=== PATIENT | female | born 1965 | race Caucasian/White ===

== ENCOUNTER → 2018-08-28 | Outpatient (CLI) | payer BC ==
[~2018-08-28] MED LIST: IBUP800; MONT10T; PARO20; Ventolin/Prove6.7 GM
== END ==
LOC: LAB SHORT 08:03 → PLD 08:03
DX: D48.5 Neoplasm of uncertain behavior of skin (principal)
CPT/HCPCS: 88304

== ENCOUNTER 2018-09-22 07:46 | Day surgery (SDC) | payer BC | END 2018-09-22 23:21 | disposition home or self-care (01) | LOC: MOI MAM 07:46 | PROC: 0HBT3ZX Excision of Right Breast, Percutaneous Approach, Diagnostic (ICD-10-PCS; principal; 2018-09-22) | DX: C82.89 Other types of follicular lymphoma, extranodal and solid organ sites (principal) | CPT/HCPCS: 19083; 77065; 88305; 88341; 88342; A4648; G0279 ==

== ENCOUNTER 2019-10-29 14:09 | Emergency (ER) | payer BC ==
[~2019-10-29] VITALS: Ht 157.5 cm; Wt 64.9 kg
[2019-10-29 15:07] LABS: BASOPHILS ABSOLUTE AUTO 0.07 K/mm3 (0.00-0.23); BASOPHILS PERCENT AUTO 1 % (0-2); EOSINOPHILS ABSOLUTE AUTO 0.19 K/mm3 (0.00-0.68); EOSINOPHILS PERCENT AUTO 2 % (0-6); Hematocrit 34.4 % (33.0-51.0); Hemoglobin 10.8 g/dL (11.5-16.0); IMMATURE GRAN ABSOLUTE AUTO 0.03 K/mm3 (0.00-0.10); IMMATURE GRAN PERCENT AUTO 0 % (0-1); LYMPHOCYTES PERCENT AUTO 10 % (21-46); MONOCYTES PERCENT AUTO 7 % (4-13); Mean Corpuscular HGB Conc 31.4 g/dL (31.5-36.5); Mean Corpuscular Volume 80 fL (80-100); Mean Platelet Volume 8.8 fL (9.1-12.4); NEUTROPHILS ABSOLUTE AUTO 9.26 K/mm3 (1.96-9.15); NEUTROPHILS PERCENT AUTO 80 % (41-73); Platelet Count 255 K/mm3 (150-400); RDW Coefficient Variation 17.6 % (11.7-14.2); RDW Standard Deviation 47.8 fL (35.1-46.3); Red Blood Cell Count 4.32 M/mm3 (3.80-5.20); White Blood Cell Count 11.55 K/mm3 (4.00-11.30)
[2019-10-29 15:46] LABS: Alanine Aminotransfer (ALT/SGP 27 U/L (12-78); Albumin, Blood 3.9 g/dL (3.4-5.0); Alk Phos 99 U/L (50-136); Anion Gap 7 mmol/L (6-16); Aspartate Aminotrans (AST/SGOT 20 U/L (12-37); Bilirubin, Total 0.5 mg/dL (0.1-1.0); Blood Urea Nitrogen 16 mg/dL (8-24); Bun/Creatinine Ratio 20.1 (12.0-20.0); CO2, Blood 24 mmol/L (21-32); Calcium, Blood 9.2 mg/dL (8.5-10.1); Chloride, Blood 106 mmol/L (98-108); Globulin, Blood 3.8 g/dL (2.2-4.0); Glomerular Filtration Rate >60 (60-); Glucose, Blood 100 mg/dL (70-99); Potassium, Blood 3.9 mmol/L (3.5-5.5); Sodium, Blood 137 mmol/L (136-145); Total Protein, Blood 7.7 g/dL (6.4-8.2)
[2019-10-29 18:31] LABS: Source, Urine Voided
[2019-10-29 18:36] LABS: Appearance, Urine Clear (Clear); Bilirubin, Urine Neg (Neg); Blood, Urine 1+ (Neg); Color, Urine Yellow (P-Yellow); Glucose Qualitative, Urine Neg (Neg); Ketones, Urine Neg (Neg); Leukocyte Esterase, Urine Neg (Neg); Nitrite, Urine Neg (Neg); Protein, Urine Neg (Neg); Urobilinogen, Urine NORM (Normal)
[2019-10-29 18:44] LABS: Bacteria Few /hpf; Red Blood Cells, Urine Rare /hpf (0-2); Squamous Epithelial Cells Rare /hpf (Few); White Blood Cells, Urine Not Seen /hpf (0-5)
[2019-10-29] MEDS ORDERED: CIPR500 PO (19:10)
[2019-10-29] MEDS ORDERED: ONDA4 PO (19:11)
[2019-10-29] MEDS ORDERED: Flagyl500 MG PO (19:11)
[2019-10-29] MEDS ORDERED: TRAM50 PO (19:11)
== END 2019-10-29 19:22 | disposition home or self-care (01) ==
LOC: ER 14:09
PROVIDERS: Emergency Medicine
DX: K52.9 Noninfective gastroenteritis and colitis, unspecified (principal); I11.0 Hypertensive heart disease with heart failure; F17.200 Nicotine dependence, unspecified, uncomplicated; Z88.0 Allergy status to penicillin; Z88.2 Allergy status to sulfonamides; Z88.6 Allergy status to analgesic agent; Z88.5 Allergy status to narcotic agent; Z88.8 Allergy status to other drugs, medicaments and biological substances; Z91.09 Other allergy status, other than to drugs and biological substances; Z86.73 Personal history of transient ischemic attack (TIA), and cerebral infarction without residual deficits; Z79.899 Other long term (current) drug therapy
CPT/HCPCS: 36415; 74176; 80053; 81001; 85025; 93005; 93010; 96365; 96368; 96375; 96376; 99284-25; J0744; J2270

== ENCOUNTER 2019-10-31 11:15 | Inpatient (IN) | payer BC ==
[~2019-10-31] VITALS: Ht 157.5 cm; Wt 63.5 kg
[~2019-10-31 11:15] MED LIST changes: +CIPR500 PO; +Flagyl500 MG PO; +ONDA4 PO; +TRAM50 PO
[2019-10-31 13:39] LABS: Source, Urine Clean Catch
[2019-10-31 13:43] LABS: BASOPHILS ABSOLUTE AUTO 0.08 K/mm3 (0.00-0.23); BASOPHILS PERCENT AUTO 1 % (0-2); EOSINOPHILS PERCENT AUTO 3 % (0-6); Hematocrit 32.6 % (33.0-51.0); Hemoglobin 10.3 g/dL (11.5-16.0); IMMATURE GRAN ABSOLUTE AUTO 0.03 K/mm3 (0.00-0.10); IMMATURE GRAN PERCENT AUTO 0 % (0-1); LYMPHOCYTES ABSOLUTE AUTO 1.38 K/mm3 (0.84-5.20); LYMPHOCYTES PERCENT AUTO 18 % (21-46); MONOCYTES ABSOLUTE AUTO 0.66 K/mm3 (0.16-1.47); MONOCYTES PERCENT AUTO 9 % (4-13); Mean Corpuscular HGB 25.4 pg (26.0-34.0); Mean Corpuscular HGB Conc 31.6 g/dL (31.5-36.5); Mean Corpuscular Volume 81 fL (80-100); Mean Platelet Volume 9.1 fL (9.1-12.4); NEUTROPHILS ABSOLUTE AUTO 5.16 K/mm3 (1.96-9.15); NEUTROPHILS PERCENT AUTO 69 % (41-73); Platelet Count 243 K/mm3 (150-400); RDW Coefficient Variation 18.3 % (11.7-14.2); RDW Standard Deviation 51.6 fL (35.1-46.3); Red Blood Cell Count 4.05 M/mm3 (3.80-5.20); White Blood Cell Count 7.51 K/mm3 (4.00-11.30)
[2019-10-31 13:47] LABS: Appearance, Urine Clear (Clear); Bilirubin, Urine Neg (Neg); Blood, Urine Neg (Neg); Color, Urine Yellow (P-Yellow); Glucose Qualitative, Urine Neg (Neg); Ketones, Urine Neg (Neg); Leukocyte Esterase, Urine Neg (Neg); Nitrite, Urine Neg (Neg); Protein, Urine Neg (Neg); Urobilinogen, Urine NORM (Normal)
[2019-10-31 14:00] LABS: Albumin, Blood 3.4 g/dL (3.4-5.0); Albumin/Globulin Ratio 0.9 (0.8-1.8); Bilirubin, Total 0.4 mg/dL (0.1-1.0); Bun/Creatinine Ratio 11.1 (12.0-20.0); Calcium, Blood 8.9 mg/dL (8.5-10.1); Creatinine, Blood 1.26 mg/dL (0.40-1.00); Globulin, Blood 3.8 g/dL (2.2-4.0); Total Protein, Blood 7.2 g/dL (6.4-8.2)
[2019-10-31] MEDS ORDERED: MONT10T PO (15:26)
[2019-10-31] MEDS ORDERED: FERSU300 PO (15:26)
[2019-10-31] MEDS ORDERED: Bentyl10 MG PO (15:27)
[2019-10-31] MEDS ORDERED: HYDCHL12.5 PO (15:28)
[2019-10-31] MEDS ORDERED: LANSOPRAZOLE30 MG PO (15:30)
[2019-10-31] MEDS ORDERED: LOSARTAN POTAS100 M1 PO (15:30)
[2019-10-31] MEDS ORDERED: NEURONTIN300 MG PO (15:31)
[2019-10-31] MEDS ORDERED: LIPITOR80 MG PO (15:31)
[2019-10-31] MEDS ORDERED: Naproxen375 MG PO (15:32)
[2019-10-31] MEDS ORDERED: FLUTICASONE PRO16 GM (15:32)
[2019-10-31] MEDS ORDERED: METO50ER PO (15:33)
[2019-10-31] MEDS ORDERED: DULOXETINE HCL60 M1 PO (15:33)
[2019-10-31] MEDS ORDERED: OMEP20ER PO (15:33)
[2019-10-31] MEDS ORDERED: XARELTO20 M1 PO (15:33)
[2019-10-31] MEDS ORDERED: ONDA4 PO (17:52)
[2019-10-31] MEDS ORDERED: CIPR500 PO (17:53)
[2019-10-31] MEDS ORDERED: OXYC5 PO (18:00)
[2019-10-31] MEDS ORDERED: TIZA4 PO (18:01)
[2019-10-31] MEDS ORDERED: METR500 PO (18:01)
[2019-10-31] MEDS ORDERED: SUMA25 PO (18:02)
--- NOTE | 2019-10-31 18:21 | NUR ---
ER ADMIT: PATIENT CAME IN ALERT AND ORIENTED X4. VITALS WERE NORMAL. SHE HAS BEEN ABLE TO VOID ONCE SHE ANSWERED THE ADMIT QUESTIONS. SHE IS ON ROOM AIR. PATIENT HAS SIGNIFICANT OTHER (VO) AT BEDSIDE WHO IS HARD OF HEARING. HER STOMACH IS TENDER AND IS REPORTING SHE WANTS TO EAT "BLAND BECAUSE OF THE DIARRHEA". SHE REPORTED PAIN AND WAS MEDICATED PER EMAR ORDER. SHE IS CURRENTLY ON ANTIBIOTICS AND NS FLUIDS. CALL LIGHT IS WITHIN REACH. PATIENT HAS NON-SKID SOCKS ON. WILL CONTINUE TO MONITOR PATIENT.
--- NOTE | 2019-11-01 04:20 | NUR ---
SHIFT SUMMARY PT RESTED INTERMITTENTLY T/O NIGHT. AAOX4. INDEPENDENT IN ROOM. GOOD PO INTAKE + OUTPUT. MULTIPLE LOOSE STOOLS THIS SHIFT. ABD DISCOMFORT CONTROLLED WITH 1 ROXICODONE Q4H. MILD NAUSEA YESTARDAY EVENING POST EATING, CONTROLLED WITH ZOFRAN. NO EMESIS. IVF + ABX PER ORDERS. PT RESTING THIS AM WITH DECREASED STIMULI + FAN AT BEDSIDE. WILL HOLD OFF ON LABS UNTIL PT AWAKENS. PT CURRENTLY RESTING WITH CALL LIGHT IN REACH.
[2019-11-01 06:13] LABS: Hematocrit 30.8 % (33.0-51.0); Hemoglobin 9.5 g/dL (11.5-16.0); Mean Corpuscular HGB 25.3 pg (26.0-34.0); Mean Corpuscular HGB Conc 30.8 g/dL (31.5-36.5); Mean Corpuscular Volume 82 fL (80-100); Platelet Count 214 K/mm3 (150-400); RDW Coefficient Variation 18.7 % (11.7-14.2); RDW Standard Deviation 53.1 fL (35.1-46.3); Red Blood Cell Count 3.75 M/mm3 (3.80-5.20); White Blood Cell Count 5.96 K/mm3 (4.00-11.30)
[2019-11-01 06:25] LABS: Bun/Creatinine Ratio 8.1 (12.0-20.0); Calcium, Blood 8.8 mg/dL (8.5-10.1); Creatinine, Blood 1.23 mg/dL (0.40-1.00)
--- NOTE | 2019-11-01 15:36 | NUR ---
SHIFT SUMMARY: PATIENT HAS BEEN ALERT AND ORIENTED X4 THROUGHOUT SHIFT. SHE HAS BEEN INDEPENDENT IN THE ROOM. SHE HAS BEEN ABLE TO VOID. PT REPORTED SHE HAD DIARRHEA YESTERDAY, BUT HAS SINCE BEEN MEDICATED AND HASN'T HAD IT SINCE. SHE STILL HAS ABD DISCOMFORT BUT HAS BEEN CONTROLLED WITH 1 ROXICODONE EVERY 4HRS. MILD NAUSEA EARLIER THIS MORNING, BUT WAS CONTROLLED WITH ZOFRAN. FLUIDS AND ANTIBIOTICS HAVE BEEN GIVEN PER ORDERS. PT REPORTS SHES BEEN ABLE TO EAT MORE THAN BEFORE, BUT IS WANTING TO TAKE IT SLOW. PT IS CURRENTLY WITH HER IN THE ROOM. CALL LIGHT IS WITHIN REACH. WILL CONTINUE TO MONITOR UNTIL NIGHTSHIFT NURSE COMES FOR REPORT.
[2019-11-02 05:00] LABS: Hematocrit 35.7 % (33.0-51.0); Hemoglobin 10.9 g/dL (11.5-16.0); Mean Corpuscular HGB 25.3 pg (26.0-34.0); Mean Corpuscular HGB Conc 30.5 g/dL (31.5-36.5); Mean Corpuscular Volume 83 fL (80-100); Mean Platelet Volume 9.1 fL (9.1-12.4); Platelet Count 242 K/mm3 (150-400); RDW Coefficient Variation 19.4 % (11.7-14.2); RDW Standard Deviation 55.8 fL (35.1-46.3); Red Blood Cell Count 4.31 M/mm3 (3.80-5.20); White Blood Cell Count 6.46 K/mm3 (4.00-11.30)
--- NOTE | 2019-11-02 05:11 | NUR ---
SHIFT SUMMARY PT RESTED WELL T/O NIGHT. AAOX4. GOOD PO INTAKE + OUTPUT. IVF SALINE LOCKED + IV ABX PER ORDERS. INDEPENDENT IN ROOM. PT REPORTING MULTIPLE LOOSE STOOLS YESTARDAY EVENING + FLATUS, NO BLOOD. BT X4, ABD SOFT BUT TENDER WITH PALPATION. NO ACUTE CHANGES OVER NIGHT. AWAITING LAB RESULTS THIS AM. PT CURRENTLY SITTING UP IN BED WATCHING TV WITH CALL LIGHT IN REACH.
[2019-11-02 05:16] LABS: Bun/Creatinine Ratio 12.4 (12.0-20.0); Calcium, Blood 9.3 mg/dL (8.5-10.1); Creatinine, Blood 1.21 mg/dL (0.40-1.00)
--- NOTE | 2019-11-02 09:19 | NUR ---
[address] TORRES HERE TO SEE PATIENT. DISCUSSED WITH DR TORRES MEDS HELD THIS AM DUE TO BP AND THAT PATIENT DOES NOT WISH TO TAKE ASPIRIN. DR TORRES DISCUSSED WITH PATIENT WHY ASPIRIN WAS ORDERED UPON ADMISSION- PT AGAIN DECLINES ASPIRIN DOSE
--- NOTE | 2019-11-02 18:04 | NUR ---
SUMMARY PT REPORTS INCREASED ABD PAIN AND CRAMPING AFTER PO FOOD, PT NITZA FLUIDS WITHOUT NAUSEA. PT REPORTS SOME BLOOD ON TOILET PAPER WHEN WIPES SELF AFTER BM. BM IS BROWN IN APPEARANCE
[2019-11-03 04:39] LABS: Hematocrit 30.8 % (33.0-51.0); Hemoglobin 9.8 g/dL (11.5-16.0); Mean Corpuscular HGB 25.7 pg (26.0-34.0); Mean Corpuscular HGB Conc 31.8 g/dL (31.5-36.5); Mean Corpuscular Volume 81 fL (80-100); Mean Platelet Volume 9.1 fL (9.1-12.4); Platelet Count 193 K/mm3 (150-400); RDW Coefficient Variation 19.8 % (11.7-14.2); RDW Standard Deviation 56.8 fL (35.1-46.3); Red Blood Cell Count 3.82 M/mm3 (3.80-5.20); White Blood Cell Count 5.97 K/mm3 (4.00-11.30)
[2019-11-03 04:57] LABS: Bun/Creatinine Ratio 9.2 (12.0-20.0); Calcium, Blood 8.8 mg/dL (8.5-10.1); Creatinine, Blood 1.09 mg/dL (0.40-1.00); Potassium, Blood 3.8 mmol/L (3.5-5.5)
--- NOTE | 2019-11-03 05:34 | NUR ---
SHIFT SUMMARY COLITIS, A/O, VSS, VOIDING, PASSING FLATUS, MULTIPLE BM DURING SHIFT, TOLERATING PO, AMBULATING INDEPENDENTLY IN ROOM, PAIN WELL CONTROLLED PER EMAR, ABX INFUSING PER EMAR. PT STATED "MY CANCER DOCTOR TOLD ME NOT TO TAKE ASPIRIN OR MY REGULAR BLOOD THINNER FOR 10 DAYS", ASPIRIN HELD AND WILL ADVISE DAY RN TO DISCUSS DC W/ DR TORRES PER PT REQUEST. WILL CONTINUE TO MONITOR AND REPORT TO ONCOMING DAY RN.
--- NOTE | 2019-11-03 10:04 | NUR ---
DC PLAN PT AND ON BEDSIDE PLAN/AGREED TO BE DC'D TODAY AFTER BOOKBINDER APPRENTICE, ANTIBIOTICS. DR TORRES DISCUSSED AND EDUC PT INCREASE FLUIDS FOR HYDRATION AND PAIN MNGMENT AT HOME. CC
[2019-11-03] MEDS ORDERED: LACTOBACILLUS1 EAC4 PO (13:29)
[2019-11-03] MEDS ORDERED: OXAYDO5 MG PO (13:29)
--- NOTE | 2019-11-03 14:29 | NUR ---
DISCHARGE PT PROVIDED WITH WRITTEN AND VERBAL DISCHARGE INSTRUCTIONS; SHE REPORTED UNDERSTANDING. PRESCRIPTION PROVIDED FOR PAIN MEDICATION AND PROBIOTIC CALLED TO PT'S PHARMACY. PT ESCORTED OUT IN W/C BY NATHEN KERNS.
== END 2019-11-03 13:50 | disposition home or self-care (01) | DRG 392 ==
LOC: ER 11:15 → SURS 15:15
PROVIDERS: Physician Assistant; ADMIT Internal Medicine
DX: K52.9 Noninfective gastroenteritis and colitis, unspecified (principal); C85.90 Non-Hodgkin lymphoma, unspecified, unspecified site; N17.9 Acute kidney failure, unspecified; Z20.828 Contact with and (suspected) exposure to other viral communicable diseases; F17.210 Nicotine dependence, cigarettes, uncomplicated; I77.1 Stricture of artery; I34.0 Nonrheumatic mitral (valve) insufficiency; I35.1 Nonrheumatic aortic (valve) insufficiency; J44.9 Chronic obstructive pulmonary disease, unspecified; I11.0 Hypertensive heart disease with heart failure; I50.9 Heart failure, unspecified; Z86.73 Personal history of transient ischemic attack (TIA), and cerebral infarction without residual deficits
CPT/HCPCS: 36415; 70450; 80048; 80053; 81003; 84484; 85025; 85027; 93005; 93010; 93306; 94760; 97110; 97161; 99285-25; A9270-GY; J0744; J2405; J7030; J7050; J7120

== ENCOUNTER 2020-06-05 09:16 | Inpatient (IN) | payer BC ==
[~2020-06-05] VITALS: Ht 167.6 cm; Wt 78.9 kg
[~2020-06-05 09:16] MED LIST changes: +BUSP5 PO; +Bentyl10 MG PO; +CLARITIN-D 121 EAC1 PO; +CLOP75 PO; +DULO60 PO; +DULOXETINE HCL60 M1 PO; +FERSU300 PO; +FLUTICASONE PRO16 GM; +HYDCHL12.5 PO; +LACTOBACILLUS1 EAC4 PO; +LANSOPRAZOLE30 MG PO; +LIPITOR80 MG PO; +LOSARTAN POTAS100 M1 PO; +METO25ER PO; +METO50ER PO; +METR500 PO; +MONT10T PO; +NEURONTIN300 MG PO; +Naproxen375 MG PO; +OMEP20ER PO; +OXAYDO5 MG PO; +OXYC5 PO; +SUMA25 PO; +TIZA4 PO; +XARELTO20 M1 PO; +XARELTO20 MG PO
[2020-06-05 09:52] LABS: BASOPHILS ABSOLUTE AUTO 0.27 K/mm3 (0.00-0.23); BASOPHILS PERCENT AUTO 1 % (0-2); EOSINOPHILS ABSOLUTE AUTO 1.11 K/mm3 (0.00-0.68); EOSINOPHILS PERCENT AUTO 6 % (0-6); Hematocrit 44.7 % (33.0-51.0); Hemoglobin 14.3 g/dL (11.5-16.0); IMMATURE GRAN ABSOLUTE AUTO 0.27 K/mm3 (0.00-0.10); IMMATURE GRAN PERCENT AUTO 1 % (0-1); LYMPHOCYTES ABSOLUTE AUTO 8.37 K/mm3 (0.84-5.20); LYMPHOCYTES PERCENT AUTO 44 % (21-46); MONOCYTES ABSOLUTE AUTO 1.58 K/mm3 (0.16-1.47); MONOCYTES PERCENT AUTO 8 % (4-13); Mean Corpuscular HGB 31.1 pg (26.0-34.0); Mean Corpuscular Volume 97 fL (80-100); Mean Platelet Volume 8.6 fL (9.1-12.4); NEUTROPHILS ABSOLUTE AUTO 7.46 K/mm3 (1.96-9.15); NEUTROPHILS PERCENT AUTO 39 % (41-73); Platelet Count 310 K/mm3 (150-400); RDW Coefficient Variation 13.2 % (11.7-14.2); RDW Standard Deviation 47.4 fL (35.1-46.3); White Blood Cell Count 19.06 K/mm3 (4.00-11.30)
[2020-06-05 10:05] LABS: Calcium, Ionized (POC) 1.12 mmol/L (1.10-1.46); Chloride (POC) 100 mmol/L (98-108); Creatinine (POC) 1.2 mg/dL (0.6-1.0); Glucose (ISTAT POC) 302 mg/dL (70-99); Hemoglobin (POC) 15.3 g/dL (12.0-16.0); Potassium (POC) 3.3 mmol/L (3.5-5.5); Sodium (POC) 134 mmol/L (135-148); Total CO2 (POC) 18 mmol/L (21-32)
[2020-06-05 10:05] LABS: Alanine Aminotransfer (ALT/SGP 56 U/L (12-78); Albumin, Blood 3.2 g/dL (3.4-5.0); Albumin/Globulin Ratio 0.9 (0.8-1.8); Alk Phos 136 U/L (50-136); Anion Gap 13 mmol/L (6-16); Aspartate Aminotrans (AST/SGOT 55 U/L (12-37); Bilirubin, Total 0.3 mg/dL (0.1-1.0); Blood Urea Nitrogen 10 mg/dL (8-24); Bun/Creatinine Ratio 10.1 (12.0-20.0); CO2, Blood 19 mmol/L (21-32); Calcium, Blood 8.8 mg/dL (8.5-10.1); Chloride, Blood 102 mmol/L (98-108); Globulin, Blood 3.6 g/dL (2.2-4.0); Glomerular Filtration Rate >60 (60-); Glucose, Blood 311 mg/dL (70-99); Potassium, Blood 3.4 mmol/L (3.5-5.5); Sodium, Blood 134 mmol/L (136-145); Total Protein, Blood 6.8 g/dL (6.4-8.2); Troponin I 0.073 ng/mL (0.000-0.040)
[2020-06-05 10:05] LABS: Source, Urine Catheter
[2020-06-05 10:08] LABS: Bilirubin, Urine Neg (Neg); Blood, Urine 4+ (Neg); Glucose Qualitative, Urine 3+ (Neg); Ketones, Urine 1+ (Neg); Leukocyte Esterase, Urine 1+ (Neg); Nitrite, Urine Neg (Neg); Protein, Urine 4+ (Neg); Specific Gravity, Urine 1.025 (1.003-1.022); Urobilinogen, Urine NORM (Normal)
[2020-06-05 10:13] LABS: PCO2 Arterial 53.9 mmHg (35-45); PO2 Arterial 375 mmHg (80-100)
[2020-06-05 10:17] LABS: Appearance, Urine Hazy (Clear); Color, Urine Yellow (P-Yellow)
[2020-06-05 10:18] LABS: Amorphous Light (0-Heavy); Bacteria Few /hpf; Mucus Light (0-Heavy); Squamous Epithelial Cells Rare /hpf (Few); White Blood Cells, Urine 0-2 /hpf (0-5)
[2020-06-05 10:26] LABS: U Amphetamine Screen Not Detected; U Barbituate Screen Not Detected; U Benzodiazapine Screen Not Detected; U Buprenorphine Screen Not Detected; U Cannabinoids Screen Not Detected; U Cocaine Screen Not Detected; U Methadone Screen Not Detected; U Methamphetamine Screen Not Detected; U Opiates Screen Not Detected; U Oxycodone Screen Not Detected; U Phencyclidine Screen Not Detected
[2020-06-05 10:27] LABS: U Propoxyphene Screen Not Detected
[2020-06-05 10:43] LABS: Influenza A, PCR NEGATIVE (NEGATIVE); Influenza B, PCR NEGATIVE (NEGATIVE); Resp Syncytial Virus, PCR NEGATIVE (NEGATIVE); SARS-Cov-2 (COVID-19) PCR, MMC NEGATIVE (NEGATIVE)
[2020-06-05] MEDS ORDERED: PANT20 PO (11:48)
[2020-06-05] MEDS ORDERED: TIZANIDINE HCL2 M5 PO (11:49)
[2020-06-05] MEDS ORDERED: BUSP5 PO (11:49)
[2020-06-05] MEDS ORDERED: METOPROLOL TART25 MG PO (11:50)
[2020-06-05] MEDS ORDERED: CYMBALTA30 M2 PO (11:50)
[2020-06-05] MEDS ORDERED: IMITREX100 MG PO (11:51)
--- NOTE | 2020-06-05 13:58 | NUR ---
ARRIVAL FROM ER PT ADMITTED FOR ACUTE RESP FAILURE. ARRIVES TO ICU AT 1210. PT INTUBATED AND SEDATED. VENT SETTINGS AC 18/400/10/50%. LUNGS COARSE c PROLONGED EXP PHASE AND EXP WHEEZES. OCCASIONAL COUGH. PROPOFOL GTT FOR SEDATION. PT P/W/D. ST ON MONITOR, RATE 100-130'S. BP STABLE, MAP>65. ABD DISTENDED, SOFT, BT X 4. OGT TO LIS, BROWN EMESIS OUT. CISNEROS PATENT, DRAINING CLOUDY YELLOW URINE TO GRAVITY. PIV X 3. IVF INFUSING AND K+, ANTIBIOTICS STARTED. RESTRAINTS TO PROTECT LINES AND TUBES. VO AT BEDSIDE. REPORTS PT c INCREASING SOB, "BRONCHITIS LIKE" SYMPTOMS X 3 WEEKS. STATES SYMPTOMS WORSE THIS AM. PT SE[facility] AT [facility], DOES NOT RECEIVE TX, JUST MONITORING.
[2020-06-05 17:42] LABS: PO2 Arterial 105 mmHg (80-100); pH Blood Arterial 7.31 (7.35-7.45)
--- NOTE | 2020-06-05 17:57 | NUR ---
METOPROLOL 2.5MG IVP ADMINISTERED FOR HR 137 AFIB. HR DECREASED TO 125, BP BECAME HYPTENSIVE. 250ML BOLUS NS ADMINSTERED PER DR. OVALLE, BP IMPROVING.
--- NOTE | 2020-06-05 18:40 | NUR ---
EVENING UPDATE PT APPEARED VERY UNCOMFORTABLE DESPITE INCREASE IN PROPOFOL, EXPIRATION TIMES WERE LONG AND APPEARED TO BE FORCED, ACCESSORY MUSCLES IN USE, VENT ALARMING HIGH PRESSURES. LS TIGHT, DIMINISHED. PROPOFOL INCREASED WITHOUT CHANGE, RT NOTIFIED. RT AT BEDSIDE, NEB ADMINISTERED, FLOW DECREASED. VENT SETTINGS AC 18, Vt 400, FIO2 40%, PEEP 10. PT'S RESPIRATIONS APPEAR UNLABORED AT THIS TIME, ACCESSORY MUSCLE USE DECREASED. LS REMAIN DIMINISHED T/O, AIRATION INCREASED. SOLUMEDROL ADMINISTERED, XARELTO HELD PT'S STATES PT HAD IT AT HOME THIS MORNING. HR 120'S AFTER METOPROLOL, BP 119/72 AFTER 250ML NS BOLUS. NS DC'D, BICARB INFUSING PER ORDERS. PLAN TO DRAW ABG AT [address] OVALLE.
[2020-06-05 21:04] LABS: PCO2 Arterial 37.6 mmHg (35-45); PO2 Arterial 107 mmHg (80-100); pH Blood Arterial 7.32 (7.35-7.45)
[2020-06-06 03:43] LABS: BASOPHILS ABSOLUTE AUTO 0.01 K/mm3 (0.00-0.23); BASOPHILS PERCENT AUTO 0 % (0-2); EOSINOPHILS PERCENT AUTO 0 % (0-6); Hematocrit 33.5 % (33.0-51.0); Hemoglobin 11.5 g/dL (11.5-16.0); IMMATURE GRAN ABSOLUTE AUTO 0.06 K/mm3 (0.00-0.10); IMMATURE GRAN PERCENT AUTO 1 % (0-1); LYMPHOCYTES ABSOLUTE AUTO 0.51 K/mm3 (0.84-5.20); LYMPHOCYTES PERCENT AUTO 5 % (21-46); MONOCYTES ABSOLUTE AUTO 0.37 K/mm3 (0.16-1.47); MONOCYTES PERCENT AUTO 3 % (4-13); Mean Corpuscular HGB Conc 34.3 g/dL (31.5-36.5); Mean Platelet Volume 8.7 fL (9.1-12.4); NEUTROPHILS ABSOLUTE AUTO 10.17 K/mm3 (1.96-9.15); NEUTROPHILS PERCENT AUTO 92 % (41-73); Platelet Count 188 K/mm3 (150-400); RDW Coefficient Variation 13.5 % (11.7-14.2); RDW Standard Deviation 44.5 fL (35.1-46.3); Red Blood Cell Count 3.71 M/mm3 (3.80-5.20); White Blood Cell Count 11.12 K/mm3 (4.00-11.30)
[2020-06-06 03:47] LABS: Mean Corpuscular Volume 90 fL (80-100)
[2020-06-06 04:03] LABS: Alanine Aminotransfer (ALT/SGP 75 U/L (12-78); Albumin, Blood 2.8 g/dL (3.4-5.0); Albumin/Globulin Ratio 0.9 (0.8-1.8); Alk Phos 97 U/L (50-136); Anion Gap 9 mmol/L (6-16); Aspartate Aminotrans (AST/SGOT 54 U/L (12-37); Bilirubin, Total 0.6 mg/dL (0.1-1.0); Blood Urea Nitrogen 11 mg/dL (8-24); Bun/Creatinine Ratio 14.1 (12.0-20.0); CO2, Blood 24 mmol/L (21-32); Calcium, Blood 7.9 mg/dL (8.5-10.1); Chloride, Blood 106 mmol/L (98-108); Creatinine, Blood 0.78 mg/dL (0.40-1.00); Globulin, Blood 3.1 g/dL (2.2-4.0); Glomerular Filtration Rate >60 (60-); Glucose, Blood 231 mg/dL (70-99); Magnesium, Blood 1.8 mg/dL (1.6-2.4); Phosphorus, Blood 1.1 mg/dL (2.5-4.9); Potassium, Blood 3.3 mmol/L (3.5-5.5); Sodium, Blood 139 mmol/L (136-145); Total Protein, Blood 5.9 g/dL (6.4-8.2)
[2020-06-06 04:55] LABS: PCO2 Arterial 35.8 mmHg (35-45); PO2 Arterial 54.3 mmHg (80-100); pH Blood Arterial 7.47 (7.35-7.45)
--- NOTE | 2020-06-06 05:47 | NUR ---
SHIFT SUMMARY PATIENT SLEPT WELL THROUGH NIGHT. THROUGH MOST OF NIGHT HAD DIFFICULTY BALANCING OXYGENATION, BLOOD PRESSURE, SEDATION, VENTILATOR TOLERANCE. FINALLY SETTLED ON PROPOFOL @ 10 MCG/KG/HR WITH INFREQUENT ATIVAN PUSHES OF 2MG. ASSESSMENT IS CHARTED. VSS. WILL CONTINUE TO MONITOR.
--- NOTE | 2020-06-06 07:15 | NUR ---
BEGINNING OF SHIFT Assumed care of pt at 0700. Bedside report received from Galileo KERNS. Pt receiving 10 mcg/kg/min propofol for sedation. At this rate, pt is responsive to verbal stimulus. Follows commands. Easily agitated, however, pt is redirectable. Difficulty increasing propofol due to low BP. Gag and cough are present. Pupils are equal and round. Telescoping noted with assessment with light. Pt on on ventilator with 7.5 cm ETT, 21 cm ATT. Ventilator settings, spontaneous mode with PS 10/10, 35% FiO2. Respirations 16-20. Tidal volumes greater than [address] per monitor with HR in 140s. Diop catheter in place, draining clear, yellow urine. Temp probe in place, low-grade fever. Will continue to closely reassess. OG tube in place, to LIS, with bilious drainage.
--- NOTE | 2020-06-06 08:30 | NUR ---
DR TUBBS AND DR HONG AT BEDSIDE. DISCUSSED PATIENT'S ANTIBIOTICS AND AWARE OF HR/BP.
--- NOTE | 2020-06-06 11:00 | NUR ---
Discussed BP with Dr Blackmon, as it has not improved with reducing sedation. Plan for fluid bolus and if this is not effective, PICC line will be placed for giving vasopressors.
[2020-06-06 12:46] LABS: Hematocrit 31.5 % (33.0-51.0); Hemoglobin 10.7 g/dL (11.5-16.0)
--- NOTE | 2020-06-06 13:04 | NUR ---
Echocardiogram completed.
--- NOTE | 2020-06-06 17:49 | NUR ---
END OF SHIFT SUMMARY: PATIENT IS INTUBATED, FOLLOWS COMMANDS, AND HAS HAD PERIODS OF AGITATION AND RELAXATION THROUGHOUT SHIFT. PT IS IN SOFT WRIST RESTRAINTS THAT SHE IS TOLERATING WELL, BUT MOVES ARMS UP TOWARDS VENT WHEN UNRESTRAINED DURING REPOSITIONING. AT THIS TIME SHE IS CALM AND COOPERATIVE WITH CARE. CURRENTLY SEDATED WITH 0.4 MCG/KG/HR PRECEDEX. GAG AND COUGH REFLEXES PRESENT. SHE OPENS EYES AND TURNS BODY ON COMMAND. VENTILATOR ON SPONTANEOUS MODE WITH PRESSURE SUPPORT 10/10, FiO2 40%, RESPIRATORY RATE IS 15, TIDAL VOLUME 550-650. SHE HAS A PICC LINE IN THE LEFT UPPER ARM, PERIPHERAL IV'S IN THE RIGHT ARM, AND A TEMP CISNEROS DRAINING TO GRAVITY. SBP HAVE BEEN IN THE MID 70S-110S WITH HR 110-140. RECEIVING LEVOPHED 4 MCG/MIN FOR GOAL MAP >65. AMIODARONE 1 MG/MIN FOR HR CONTROL. CURRENTLY SINUS TACH, RATE 131. OG TUBE CLAMPED POST ADMINISTRATION OF XARELTO. SPOUSE VISITED FOR 4 HOURS TODAY, UPDATED ON PLAN OF CARE, VERBALIZED UNDERSTANDING. WILL CONTINUE TO CLOSELY MONITOR UNTIL CARE HANDOFF AND BEDSIDE REPORT WITH ONCOMING RN.
--- NOTE | 2020-06-06 19:00 | NUR ---
ASSUMING PT CARE: PT INTUBATED & SEDATED. VENT: PS 10/10, 40%. GTTs: PRECEDEX 0.4mcg/kg/hr, LEVOPHED 2mcg/min, AMNIO 1mg/min. PT EASILY AWAKES TO VERBAL STIMULI, BECOMES ANXIOUS & BEGINS TO PULL AT RESTRAINTS. PT ABLE TO SHAKE & NOD TO YES/NO QUESTIONS. AT TIMES, ABLE TO BE REORIENTED. PT ABLE TO SHIFT HIPS & MOVE POSITIONS IN BED PRN. SEE INIITIAL RN SHIFT ASSESSMENT. WILL CONTINUE TO MONITOR & REPORT APPROPRIATE.
[2020-06-06 20:51] LABS: Base Excess Venous 9.3 mmol/L; Bicarbonate Venous 32.3 mmol/L (24.0-30.0); PCO2 Venous 39.1 mmHg (38-42); PO2 Venous 57.3 mmHg (38-42); pH Blood Venous 7.52 (7.34-7.37)
[2020-06-06 21:22] LABS: Magnesium, Blood 1.7 mg/dL (1.6-2.4); Phosphorus, Blood 1.6 mg/dL (2.5-4.9); Potassium, Blood 2.7 mmol/L (3.5-5.5)
--- NOTE | 2020-06-06 22:45 | NUR ---
UPDATE: SPOKE W/ DR HOOD REGARDING UPDATED LABS. VERBAL ORDERS GIVEN FOR K+ & PHOS REPLACEMENT. RESULTED VBG IMPROVING, ORDERS TO DC.
--- NOTE | 2020-06-07 05:30 | NUR ---
SHIFT SUMMARY: PT REMAINS INTUBATED & SEDATED. VENT: PS 10/10 @ 40%FiO2 TV 450-600. GTTs: PRECEDEX 0.4mcg/kg/hr. LEVOPHED ON SB & PT IS MAINTAINING MAPs >65. LAST NIGHT PT RECEIVED PHOS & K+ REPLACEMENT, BICARB WAS DC'D AFTER IMPROVED VBG. WHEN UNDISTURBED PT WAS ABLE TO REST, HOWEVER W/ ANY VERBAL OR TACTILE STIMULI, PT BECAME VERY ANXIOUS & PULLING AT RESTRAINTS & THRASHING IN THE BED. PRN ATIVAN WAS SLIGHTLY HELPFUL IN RESOLVING PT'S AGITATION. PT COULD BENEFIT FROM AN ADJUNCT SEDATION, WILL DISCUSS W/ ONCOMING RN. NO BM THIS SHIFT, GUIAC UNABLE TO BE COLLECTED. WILL CONTINUE TO MONITOR & REPORT APPROPRIATE.
[2020-06-07 06:25] LABS: Anion Gap 6 mmol/L (6-16); Blood Urea Nitrogen 11 mg/dL (8-24); Bun/Creatinine Ratio 14.7 (12.0-20.0); CO2, Blood 29 mmol/L (21-32); Calcium, Blood 7.6 mg/dL (8.5-10.1); Chloride, Blood 105 mmol/L (98-108); Creatinine, Blood 0.75 mg/dL (0.40-1.00); Glomerular Filtration Rate >60 (60-); Glucose, Blood 176 mg/dL (70-99); Magnesium, Blood 1.9 mg/dL (1.6-2.4); Phosphorus, Blood 3.4 mg/dL (2.5-4.9); Potassium, Blood 3.2 mmol/L (3.5-5.5); Sodium, Blood 140 mmol/L (136-145)
[2020-06-07 06:48] LABS: BASOPHILS PERCENT AUTO 0 % (0-2); EOSINOPHILS PERCENT AUTO 0 % (0-6); Hematocrit 29.1 % (33.0-51.0); Hemoglobin 10.1 g/dL (11.5-16.0); IMMATURE GRAN PERCENT AUTO 1 % (0-1); LYMPHOCYTES ABSOLUTE AUTO 0.52 K/mm3 (0.84-5.20); LYMPHOCYTES PERCENT AUTO 6 % (21-46); MONOCYTES ABSOLUTE AUTO 0.55 K/mm3 (0.16-1.47); MONOCYTES PERCENT AUTO 6 % (4-13); Mean Corpuscular HGB Conc 34.7 g/dL (31.5-36.5); Mean Corpuscular Volume 89 fL (80-100); Mean Platelet Volume 8.7 fL (9.1-12.4); NEUTROPHILS ABSOLUTE AUTO 7.71 K/mm3 (1.96-9.15); NEUTROPHILS PERCENT AUTO 87 % (41-73); Platelet Count 175 K/mm3 (150-400); RDW Coefficient Variation 13.6 % (11.7-14.2); RDW Standard Deviation 44.7 fL (35.1-46.3); Red Blood Cell Count 3.26 M/mm3 (3.80-5.20); White Blood Cell Count 8.88 K/mm3 (4.00-11.30)
--- NOTE | 2020-06-07 12:15 | NUR ---
PT EXTUBATED AT 1212. TOLERATED WELL AND A&O X4. O2 SATS REMAINED IN 90S ON 2L. HR REMAINED SINUS 90S. PT PLEASANT AND COOPERATIVE. LUNG SOUNDS COURSE BILATERAL UPPER LOBES, UNABLE TO ASSESS LOWER LOBES DUE TO INCREASED PT COUGHING WHEN REPOSITIONING. PT CONTINUES TO REPOSITION HERSELF REGULARLY. NO SIGNS OF DISTRESS AT THIS TIME. CALL LIGHT WITHIN REACH.
[2020-06-07 14:20] LABS: Magnesium, Blood 1.8 mg/dL (1.6-2.4); Phosphorus, Blood 2.6 mg/dL (2.5-4.9); Potassium, Blood 3.7 mmol/L (3.5-5.5)
--- NOTE | 2020-06-07 15:53 | NUR ---
AT 1510, PT REQUESTED BED DEL REAL AND QUICKLY BECAME ANXIOUS WITH RESPIRATORY DISTRESS. SPO2 DROPPED INTO 70S. LUNG SOUNDS COURSE, WHEEZY. ATIVAN GIVEN FOR ANXIETY. BIPAP STARTED BY RT. DR HOOD TO BEDSIDE. EKG DONE. HR IN 140-150S. AMIODARONE BOLUS GIVEN AND DRIP STARTED PER ERWIN. LASIX GIVEN. MAG STARTED. NOW PT IS TOLERATING BIPAP AND RESTING. SIGNIFICANT OTHER PRESENT THROUGHOUT EPISODE.
--- NOTE | 2020-06-07 18:39 | NUR ---
SUMMARY PT PLANNED FOR EXTUBATION TODAY, PRECEDEX TURNED OFF IN AM. EXTUBATED AT 1212 W/O COMPLICATIONS. PT WAS A&O X4, PLEASANT AND COOPERATIVE, CONTINUED TO REPOSITION IN BED WITHOUT ASSISTANCE, RESTED PEACEFULLY. O2 SATS ON 2L NC STARTED DROPPING INTO 80S, BOOSTED TO 4L NC AND O2 SATS REMAINED IN 90S. AT AROUND 1500 PT ASKED FOR BED DEL REAL AND STARTED TO BECOME ANXIOUS AND CONFUSED. RESPIRATORY DISTRESS FOLLOWED AND RT PLACED BIPAP. ATIVAN GIVEN. AMIODARONE BOLUS GIVEN AND DRIP STARTED FOR SINUS TACHY. LASIX GIVEN. PT CURRENTLY RESTING QUIETLY ON BIPAP. TITRATING DOWN FI02.
--- NOTE | 2020-06-07 20:00 | NUR ---
ASSUMING CARE: PT SITTING @ 90 DEGREES IN BED. BiPAP @ 16/8, 40%. TOLERATING WELL. AWAKES TO VERBAL STIMULI, FOLLOWING COMMANDS, APPROPRIATELY INTERACTIVE. SPO2>96%. HR 90s. AMNIO GTT @ 1mg/min. PT GIVEN SHORT BREAK FROM BiPAP & WAS ABLE TO TOLERATE ORAL CARE FOR APPROX 3 min BEFORE SATS DEC TO 88%. NOTABLE VERY WEAK & NONPRODUCTIVE COUGH, THOUGH VERY WET SOUNDING. PLAN FOR REPEAT TROP @ 2200 & FOR CARDIOLOGY CONSULT W/ DR GRAFF IN THE MORNING. WILL CONTINUE TO MONITOR & REPORT APPROPRIATE.
[2020-06-08 05:04] LABS: BASOPHILS ABSOLUTE AUTO 0.01 K/mm3 (0.00-0.23); BASOPHILS PERCENT AUTO 0 % (0-2); EOSINOPHILS PERCENT AUTO 0 % (0-6); Hematocrit 31.5 % (33.0-51.0); Hemoglobin 10.9 g/dL (11.5-16.0); IMMATURE GRAN ABSOLUTE AUTO 0.15 K/mm3 (0.00-0.10); IMMATURE GRAN PERCENT AUTO 1 % (0-1); LYMPHOCYTES ABSOLUTE AUTO 0.65 K/mm3 (0.84-5.20); LYMPHOCYTES PERCENT AUTO 6 % (21-46); MONOCYTES ABSOLUTE AUTO 0.37 K/mm3 (0.16-1.47); MONOCYTES PERCENT AUTO 3 % (4-13); Mean Corpuscular HGB 31.1 pg (26.0-34.0); Mean Corpuscular HGB Conc 34.6 g/dL (31.5-36.5); Mean Corpuscular Volume 90 fL (80-100); Mean Platelet Volume 8.7 fL (9.1-12.4); NEUTROPHILS PERCENT AUTO 90 % (41-73); Platelet Count 182 K/mm3 (150-400); RDW Coefficient Variation 13.8 % (11.7-14.2); RDW Standard Deviation 45.5 fL (35.1-46.3); White Blood Cell Count 11.58 K/mm3 (4.00-11.30)
[2020-06-08 05:21] LABS: Anion Gap 6 mmol/L (6-16); Blood Urea Nitrogen 17 mg/dL (8-24); Bun/Creatinine Ratio 20.8 (12.0-20.0); CO2, Blood 27 mmol/L (21-32); Calcium, Blood 7.8 mg/dL (8.5-10.1); Chloride, Blood 108 mmol/L (98-108); Creatinine, Blood 0.82 mg/dL (0.40-1.00); Glomerular Filtration Rate >60 (60-); Glucose, Blood 149 mg/dL (70-99); Magnesium, Blood 2.5 mg/dL (1.6-2.4); Phosphorus, Blood 2.4 mg/dL (2.5-4.9); Potassium, Blood 3.4 mmol/L (3.5-5.5); Sodium, Blood 141 mmol/L (136-145)
--- NOTE | 2020-06-08 06:41 | NUR ---
SHIFT SUMMARY: PT CONTINUES ON BiPAP 13/10, 40%. TOLERATED WELL THROUGHOUT THE NIGHT. GIVEN SEVERAL BREAKS FROM BiPAP MASK FOR ORAL CARE & WAS ONLY ABLE TO TOLERATE APPROX 3 MIN OFF THE BiPAP BEFORE SATS BEGIN TO DROP TO THE HIGH 80s & PT BEGINS TO COUGH. COUGH IS BEGINNING TO BECOME STRONGER, HOWEVER STILL UNPRODUCTIVE. HR ALSO INC SLIGHLY TO 117-100bpm WHEN OFF BiPAP. PT UPDATED ON PLAN FOR CARDIOLOGY CONSULT TODAY & IS AGREEABLE TO THIS PLAN. NO ACUTE NEG CHANGES THROUGHOUT THE NIGHT.
--- NOTE | 2020-06-08 10:36 | NUR ---
PT AWAKE. ON A BREAK FROM BIPAP ON 4L NC. DOING WELL. DID BEDSIDE SWALLOW EVAL PER DR. HOOD AND PT PASSED. GETS SOB WITH EXERTION BUT RECOVERS AND DOES NOT DROP SATS. A/O TO PERSON, PLACE, AND YEAR. ABLE TO USE CALL LIGHT APPROPRIATELY. ON AMIO GTT AT 0.5MG/MIN. NO CP OR NAUSEA. NO SIGN OF DISTRESS.
[2020-06-08 14:09] LABS: Stool Occult Blood Guaiac 1 Neg (Neg)
--- NOTE | 2020-06-08 14:19 | NUR ---
PT WAS RESTING IN BED WITH 4L NC ON. SHE HAD BEEN USING THE BEDPAN FREQUENTLY WITHOUT ISSUE. AT 1400 PT BECAME ANXIOUS, SOB, AND LABORED BREATHING. SPO2 WENT FROM THE 90'S TO 70'S. PLACED BACK ON BIPAP AFTER GIVING ATIVAN IN ORDER FOR HER TO KEEP IT ON. SHE WAS INITIALLY FIGHTING IT AWAY. ALSO GAVE A DOSE OF IV METOPROLOL PER DR. HOOD FOR HR 140'S. AFTER ALL OF THIS PT IS NOW RESTING ON THE BIPAP WITH AT BEDSIDE. PT IS ABLE TO CONVERSE WITH . THIS EPISODE WAS THE SAME SERIES OF EVENTS THAT TRANSPIRED ALMOST 24HRS AGO.
--- NOTE | 2020-06-08 18:40 | NUR ---
SUMMARY PT RESTING ON BIPAP NOW. TOOK A BREAK FROM BIPAP IN THE AM BUT AROUND 1400 SHE HAD AN EPISODE OF SOB AND DYSPNEA. BECAME HYPOXIC WITH SPO2 IN THE 70'S, AND HER HR GOES INTO THE 140'S. HAD TO GIVE 4MG OF ATIVAN TO GET THE BIPAP ON. LUNGS SOUNDS WERE COARSE AND WHEEZING. AFTER WEARING BIPAP THIS AFTERNOON LUNG SOUNDS HAVE IMPROVED TO CLEAR. PT IS CALM. WAS ABLE TO TAKE A COUPLE ICE CHIPS WITH A SHORT BREAK FROM BIPAP. NO SIGN OF DISTRESS NOW.
--- NOTE | 2020-06-08 21:30 | NUR ---
UPDATE: PT GIVEN BREAK FROM BiPAP. ASSISTED W/ ORAL CARE & PROVIDED W/ ICE CHIPS. PT TOLERATED WELL & D/T PERSISTENT HTN & HEADACHE, PT GIVEN PO METOPROLOL & IMITREX. NO NOTABLE DYSPHAGIA. PT SPEAKING IN FULL SENTENCES & ABLE TO PARTICIPATE IN CARE. SATS MAINTAINED >92%. HR UNCHANGED, HOWEVER BP INCREASED. AFTER APPROX 1hr OFF BiPAP & ON 4L/min NC, PT APPEARS ANXIOUS, TWISTING IN BED & UNABLE TO FIND A COMFORTABLE POSITION. PT PLACED BACK ON BiPAP. APPEARS MUCH MORE COMFORTABLE.
--- NOTE | 2020-06-08 23:10 | NUR ---
UPDATE: PT HEARD YELLING FROM ROOM & BiPAP ALARMING; FOUND TO HAVE PULLED OFF THE MASK & FLAILING IN BED. PT STS "I'M HAVING A PANIC ATTACK! HELP!"; APPEARS VERY ANXIOUS, TEARFUL. SKIN FLUSHED & DIAPHORETIC. SATS 70s & HR NOW 140s. PT MEDICATED W/ PRN ATIVAN & BiPAP MASK REPLACED & FiO2 INC TO 100%. AFTER SEVERAL MINS OF COACHING, PT WAS ABLE TO BE CONSOLED & IS NOW SMILING, LAUGHING & THANKING STAFF. FiO2 TITRATED DOWN TO 40% & SATS NOW 98% & HR LOW 100s. WILL CONTINUE TO MONITOR CLOSELY & REPORT APPROPRIATE.
--- NOTE | 2020-06-09 03:43 | NUR ---
UPDATE: PT CONTINUES TO IMPROVE AFTER BiPAP PLACEMENT & PRECEDEX GTT. BiPAP MASK REMOVED & NC PLACED @ 6L/MIN FOR ORAL CARE & SKIN CARE. PT TOLERATING WELL. NO DYSPNEA OR EXCESSIVE COUGHING NOTED. WILL RE-EVALUATE SHORTLY.
[2020-06-09 04:00] LABS: BASOPHILS ABSOLUTE AUTO 0.02 K/mm3 (0.00-0.23); BASOPHILS PERCENT AUTO 0 % (0-2); EOSINOPHILS PERCENT AUTO 0 % (0-6); Hematocrit 34.3 % (33.0-51.0); Hemoglobin 11.5 g/dL (11.5-16.0); IMMATURE GRAN ABSOLUTE AUTO 0.17 K/mm3 (0.00-0.10); IMMATURE GRAN PERCENT AUTO 2 % (0-1); LYMPHOCYTES ABSOLUTE AUTO 0.77 K/mm3 (0.84-5.20); LYMPHOCYTES PERCENT AUTO 8 % (21-46); MONOCYTES ABSOLUTE AUTO 0.43 K/mm3 (0.16-1.47); MONOCYTES PERCENT AUTO 4 % (4-13); Mean Corpuscular HGB 30.9 pg (26.0-34.0); Mean Corpuscular HGB Conc 33.5 g/dL (31.5-36.5); Mean Corpuscular Volume 92 fL (80-100); Mean Platelet Volume 8.6 fL (9.1-12.4); NEUTROPHILS ABSOLUTE AUTO 8.75 K/mm3 (1.96-9.15); NEUTROPHILS PERCENT AUTO 86 % (41-73); Platelet Count 189 K/mm3 (150-400); RDW Coefficient Variation 13.9 % (11.7-14.2); Red Blood Cell Count 3.72 M/mm3 (3.80-5.20); White Blood Cell Count 10.14 K/mm3 (4.00-11.30)
--- NOTE | 2020-06-09 04:15 | NUR ---
UPDATE: PT PLACED BACK ON BiPAP, PER HER REQUEST D/T ANXIETY. SPO2 SUSTAINED >92% W/ EVEN & UNLABORED RR. LS CONTINUE TO BE COARSE. +VERY HARSH & PRODUCTIVE COUGH. CLEAR SPUTUM. PT DENIES ANY NEEDS, CALL LIGHT W/ IN REACH.
[2020-06-09 04:17] LABS: Anion Gap 4 mmol/L (6-16); Blood Urea Nitrogen 18 mg/dL (8-24); Bun/Creatinine Ratio 24.3 (12.0-20.0); CO2, Blood 27 mmol/L (21-32); Calcium, Blood 7.8 mg/dL (8.5-10.1); Chloride, Blood 112 mmol/L (98-108); Creatinine, Blood 0.74 mg/dL (0.40-1.00); Glomerular Filtration Rate >60 (60-); Glucose, Blood 133 mg/dL (70-99); Magnesium, Blood 2.6 mg/dL (1.6-2.4); Phosphorus, Blood 2.2 mg/dL (2.5-4.9); Potassium, Blood 4.3 mmol/L (3.5-5.5); Sodium, Blood 143 mmol/L (136-145)
--- NOTE | 2020-06-09 05:33 | NUR ---
SHIFT SUMMARY: PT CONTINUES ON BiPAP. 15/08, 30%. SATS >92%. PRECEDEX 0.6mcg/kg/hr, PT MILDLY SEDATED & ABLE TO REST. AWAKES TO VERBAL STIMULI, COOPERATIVE W/ CARE. SEE PREVIOUS NOTATION FOR RESPIRATORY CHANGES. NO ADDITIONAL EPISODES OF ANXIETY OR RESPIRATORY DISTRESS, HOWEVER PT DOES BECOME ANXIOUS W/ PROLONGED BREAKS FROM BiPAP. HR MAINTAINING 70-80s & PT IS W/OUT COMPLAINT @ THIS TIME.
--- NOTE | 2020-06-09 08:00 | NUR ---
ASSUMED CARE / DR TUBBS / DR HONG: REPORT RECEIVED FROM IRMA Shin RN. ASSUMED CARE OF THIS PT AT APPROX 0700. ON ASSESSMENT, THE PT IS RESTING QUIETLY & AWAKENS EASILY TO VERBAL STIMULUS. SHE IS ALERT/ OREINTED AT THAT TIME & ABLE TO CONVERSE APPROPRIATELY. PER REPORT, THE PT DID HAVE SOME INTERMITTENT CONFUSION DURING WEALTH MANAGEMENT ADVISOR. LS ARE DIM T/O, PT ON BIPAP W/ SETTINGS 12/8 & 40% FIO2. SHE IS TOLERATING THIS WELL W/ O2 SATS > 92%. MONITOR SHOWS SR W/ HR 70s, BP STABLE. THE PT HAS NO GI COMPLAINTS. TEMP CISNEROS PATENT/ DRAINING. SKIN CONDITION OVERALL CDI W/ Q2H REPOSITIONING TO MAINTAIN SKIN INTEGRITY. PROVIDERS ARLEY & GELY AT BEDSIDE THIS MORNING W/ NO NEW ORDERS OR CHANGES. WILL CONTINUE TO MONITOR & UPDATE NEEDED.
--- NOTE | 2020-06-09 14:15 | NUR ---
DR PALACIOS: PROVIDER AT BEDSIDE TO AL PT. NOTIFIED HER THAT PRECEDEX HAS REMAINED OFF SINCE ASSUMPTION OF CARE & THAT PT HAS HAD NO EPISODES OF DYSPNEA/ ANXIETY THIS SHIFT. SHE CONTINUES ON 4L NC W/ O2 SATS > 92%. PROVIDER STS OKAY FOR PT TO BE PCU STATUS. SOLU-MEDROL DOSING DECREASED & TRANSFER ORDER PLACED. Q6H INSULIN COVERAGE D/C'd R/T PT NOT REQUIRING COVERAGE FOR > 2 DAYS.
--- NOTE | 2020-06-09 19:16 | NUR ---
SHIFT SUMMARY: NO ACUTE CHANGES SINCE PRIOR UPDATES. PT REMAINS A&O, PLEASANT & COOPERATIVE. SHE REMAINS ON 4L NC W/ O2 SATS > 92%. SHE HAS HAD NO EPISODES OF DYSPNEA OR ANXIETY THIS SHIFT. MONITOR SHOWS SR-ST W/ HR 70-110s, BP STABLE. ONE RUN OF UNSUSTAINED WIDE-COMPLEX TACHYCARDIA NOTED - STRIP IN CHART. PT TOLERATING PO INTAKE OF CLEAR LIQUIDS THIS SHIFT, SHE HAS HAD MANY SMALL BROWN SOFT BMs & IS GENERALLY CONTINENT, CALLING FOR THE BEDPAN. OCCASIONAL STRESS INCONTINENCE OF STL WHEN COUGHING/ SNEEZING. TEMP CISNEROS PATENT/ DRAINING YELLOW URINE. SKIN CONDITION OVERALL CDI & PT HAS BEEN ABLE TO REPOSITION SELF IN BED W/ REMINDERS TO DO SO. WILL CONTINUE TO MONITOR & REPORT OFF TO ONCOMING RN.
--- NOTE | 2020-06-09 19:40 | NUR ---
ASSESSMENT/ASSUMED CARE PT SITTING UP IN BED WITH COOL CLOTH COVING EYES. C/O HEADACHE AND BACK PAIN. MED WITH FENTANYL WILL MED WITH IMITREX AT 2030. PT A&O. MOVING SELF AROUND IN BED. LUNGS CLEAR BUT DECREASED. RT DECREASED O2 DOWN TO 3 LITER VIA NC. RESP EVEN AND NONLABORED. OCC HARSH COUGH. HEART RATE TACHY AND BP ELEVATED. PT TO RECEIVE LOPRESSOR. BT+ ABD SOFT AND NONTENDER. DENIES N/V. CISNEROS CATH PATENT DRAINING CLEAR YELLOW URINE. PICC LINE TO LEFT UPPER ARM, DRSG INTACT AND SITE CLEAR. NS AT 10 ML/HR. LIGHT OFF IN ROOM DUE TO HEADACHE.
--- NOTE | 2020-06-09 21:50 | NUR ---
REPORT TO IRMA. PT RESTING QUIETLY.
--- NOTE | 2020-06-09 22:16 | NUR ---
ASSUMING CARE OF PT: REPORT TAKEN FROM SAUMYA BRUNER. PT RESTING IN BED ON 3L/MIN NC, SPO2 >92%. RR EVEN & UNLABORED.
--- NOTE | 2020-06-10 06:26 | NUR ---
SHIFT SUMMARY: PT VERY RESTLESS THROUGHOUT THE NIGHT. RAG INSPECTOR LIGHT OFTEN. PLACED ON BEDPAN SEVERAL TIMES, NO BM. PT REPEATEDLY FRUSTRATED BY THE "ORGANIZATION" OF HER BEDSIDE TABLES & ITS ITEMS, CALLING STAFF TO ROOM FOR REPOSITIONING OF THESE ITEMS. SHE REMAINED COOPERATIVE W/ CARE BUT DOES APPEAR TO BE VERY ANXIOUS D/T THE HOSPITAL SETTING. PT MEDICATED SEVERAL TIMES FOR ANXIETY & WAS ABLE TO REST APPROX 1.5 HR AGO. SHE DOES CONTINUE TO HAVE A MOIST, PRODUCTIVE COUGH & ABLE TO COUGH SPUTUM INTO TISSUES. MOD AMT OF DARK BROWN & CLEAR SPUTUM. WILL CONTINUE TO MONITOR UNTIL REPORT OFF TO ONCOMING RN.
--- NOTE | 2020-06-10 17:52 | NUR ---
SHIFT SUMMARY PT IS ALERT AND ORIENTEDx4, ANXIOUS AT TIMES. PT WAS ABLE TO TOLERATE GETTING OUT OF BED AND WORKING WITH THERAPY TODAY. INITIALLY PT WAS ON 3L OF 02 VIA NC, TITRATED PT DOWN TO 2L TO MAINTAIN SPO2 >92%. LUNGS HAVE REMAINED CLEAR AND DIM. PTS STATUS WAS CHANGED THIS MORNING TO MEDICAL WITH TELEMETERY. VITALS HAVE REMAINED STABLE, SINUS RHYTHM ON THE MONITOR. CISNEROS D/C'D TODAY AND PT HAS BEEN ABLE TO VOID IN BSC.
--- NOTE | 2020-06-11 06:47 | NUR ---
SHIFT SUMMARY ICU XFER THIS SHIFT, NO ACUTE CHANGES SINCE ASSUMING CARE, MEDICATED 2X FOR NAUSEA, UP W/1 ASSIST TO BSC, C/O URGENCY & BURNING (CISNEROS REMOVED PRIOR TO MED FLOOR XFER), URINE IS CLEAR YELLOW, WILL PASS ON TO DAY RN, NO OTHER C/O ANY KIND, WILL CONT TO MONITOR UNTIL REPORT GIVEN TO DAY RN.
--- NOTE | 2020-06-11 18:04 | NUR ---
SHIFT SUMMARY UP TO BATHROOM WITH 1 PERSON ASSIST USING FWW. DENIES RESP DISTRESS WITH ACTIVITY. REPORTS MIGRAINE HASN'T CHANGED SINCE A.M. BUT DOESN'T WANT TO TAKE ANYTHING FOR IT UNLESS NECESSARY. S.O. AT BEDSIDE THIS EVENING. HOPES TO GO HOME TOMORROW. DID HAVE NAUSEA THIS AFTERNOON BUT RESOLVED WITH ZOFRAN.
--- NOTE | 2020-06-12 04:29 | NUR ---
SHIFT SUMMARY: VSS. AFEB. 02 94-96% ON RA. DENIES DYSPNEA, RESPS REG, EVEN. OCC MOIST COUGH PRODUCING SMALL AMT OF BROWN SPUTUM PER PT. PT REPORTS PINK TINGED URINE. DENIES DYSURIA. F/C OUT ON THE . REPORTS MIGRAINE- IMITREX GIVEN. REPORTS NAUSEA SEVERAL TIMES TONIGHT, NO VOMITING. ZOFRAN AND REGLAN HELP. SLEPT INTERMITTENTLY. NO ACUTE OVERNIGHT EVENTS. WCTM.
[2020-06-12] MEDS ORDERED: DOXY100 PO (11:49)
[2020-06-12] MEDS ORDERED: IPRAT-ALBUT 0.5-3 ML INH (11:51)
[2020-06-12] MEDS ORDERED: FLUTICASONE-SA1 EAC1 INH (11:51)
[2020-06-12] MEDS ORDERED: PRED20 PO (11:52)
--- NOTE | 2020-06-12 13:15 | NUR ---
DISCHARGE INSTRUCTIONS COMPLETED AND DISCUSSED WITH PT EXPRESSING UNDERSTANDING. SCRIPTS FAXED TO [facility]. HERE TO PICK PT UP. TO [facility] VIA W/C.
--- NOTE | 2020-06-13 08:44 | NUR ---
[facility] NOT DELIVERED PT CALLED TODAY AND REPORTED SHE NEVER GOT HER NEBULIZER MACHINE DELIVERED YESTERDAY AFTER DISCHARGING FROM HOSPITAL. THIS RN ADVISED PT TO CONTACT [facility], SHE STATED SHE ALREADY HAD AND THAT THE MACHINE WAS GOING TO BE DELIVERED TODAY. SHE "JUST WANTED TO LET THE HOSPITAL KNOW THAT THERE WERE ISSUES"
== END 2020-06-12 13:04 | disposition home or self-care (01) | DRG 871 ==
LOC: ER 09:16 → ICUE 11:30 → ICUW 11:30 → ICUE 12:05 → MEDS 06-10 19:39
PROVIDERS: Emergency Medicine; Internal Medicine Critical Care Medicine; Nurse Practitioner Acute Care; ADMIT Hospitalist
PROC: 02HV33Z Insertion of Infusion Device into Superior Vena Cava, Percutaneous Approach (ICD-10-PCS; principal; 2020-06-05)
PROC: 3E043XZ Introduction of Vasopressor into Central Vein, Percutaneous Approach (ICD-10-PCS; 2020-06-05)
PROC: 0BH17EZ Insertion of Endotracheal Airway into Trachea, Via Natural or Artificial Opening (ICD-10-PCS; 2020-06-05)
PROC: 5A1945Z Respiratory Ventilation, 24-96 Consecutive Hours (ICD-10-PCS; 2020-06-05)
PROC: 5A09357 Assistance with Respiratory Ventilation, Less than 24 Consecutive Hours, Continuous Positive Airway Pressure (ICD-10-PCS; 2020-06-07)
DX: A41.9 Sepsis, unspecified organism (principal); J96.01 Acute respiratory failure with hypoxia; R65.21 Severe sepsis with septic shock; J69.0 Pneumonitis due to inhalation of food and vomit; C85.90 Non-Hodgkin lymphoma, unspecified, unspecified site; D68.61 Antiphospholipid syndrome; I47.1 Supraventricular tachycardia; G93.40 Encephalopathy, unspecified; Z20.822 Contact with and (suspected) exposure to COVID-19; Z79.02 Long term (current) use of antithrombotics/antiplatelets; Z90.49 Acquired absence of other specified parts of digestive tract; I77.1 Stricture of artery; E87.5 Hyperkalemia; Z86.73 Personal history of transient ischemic attack (TIA), and cerebral infarction without residual deficits; Z87.891 Personal history of nicotine dependence; E87.6 Hypokalemia; R73.9 Hyperglycemia, unspecified; T38.0X5A Adverse effect of glucocorticoids and synthetic analogues, initial encounter; Y92.230 Patient room in hospital as the place of occurrence of the external cause; E66.9 Obesity, unspecified; Z68.25 Body mass index [BMI] 25.0-25.9, adult; Z88.0 Allergy status to penicillin; E78.5 Hyperlipidemia, unspecified; J43.1 Panlobular emphysema; G43.909 Migraine, unspecified, not intractable, without status migrainosus; Z78.1 Physical restraint status
CPT/HCPCS: 0241U; 31500; 36415; 36569; 36600; 51702; 70450; 71045; 71260; 80047; 80048; 80053; 81001; 82272; 82803; 82947; 83605; 83690; 83735; 83880; 84100; 84132; 84145; 84484; 85014; 85018; 85025; 86850; 86900; 86901; 87040; 87070; 87086; 87205; 87449; 93005; 93010; 93306; 94003; 94640; 94660; 94760; 94761; 96365-59; 96375-59; 97116; 97161; 97166; 97530; 97535; 99285-25; A9270; A9270-GY; C1751; C9113; J0153; J0282; J0696; J1650; J1815; J1940; J1956; J2060; J2185; J2405; J2704; J2765; J2920; J2930; J3010; J3475; J3480; J7030; J7050; J7060; J7070; J7120; J7512; Q9967

== ENCOUNTER 2022-07-27 09:59 | Day surgery (SDC) | payer BC ==
[~2022-07-27] VITALS: Ht 157.5 cm; Wt 67.4 kg
[~2022-07-27 09:59] MED LIST changes: +CYMBALTA30 M2 PO; +DOXY100 PO; +FLUTICASONE-SA1 EAC1 INH; +IMITREX100 MG PO; +IPRAT-ALBUT 0.5-3 ML INH; +METOPROLOL TART25 MG PO; +PANT20 PO; +PRED20 PO; +TIZANIDINE HCL2 M5 PO
[2022-07-27] MEDS ORDERED: OLME5TAB (10:26)
[2022-07-27 11:15] VITALS: BP 122/86
--- NOTE | 2022-07-27 11:21 | NUR ---
07/27/22 1121 Blank Cedillo IV REMOVED INTACT AND WNL
== END 2022-07-27 11:23 | disposition home or self-care (01) ==
LOC: ORSCSDS 09:59
PROVIDERS: Student in an Organized Health Care Education/Training Program
PROC: 0DB68ZX Excision of Stomach, Via Natural or Artificial Opening Endoscopic, Diagnostic (ICD-10-PCS; principal; 2022-07-27 12:30)
PROC: 0DB98ZX Excision of Duodenum, Via Natural or Artificial Opening Endoscopic, Diagnostic (ICD-10-PCS; principal; 2022-07-27 12:30)
DX: D50.9 Iron deficiency anemia, unspecified (principal); N18.9 Chronic kidney disease, unspecified; I12.9 Hypertensive chronic kidney disease with stage 1 through stage 4 chronic kidney disease, or unspecified chronic kidney disease; K21.9 Gastro-esophageal reflux disease without esophagitis; E78.00 Pure hypercholesterolemia, unspecified; Z86.73 Personal history of transient ischemic attack (TIA), and cerebral infarction without residual deficits; Z79.02 Long term (current) use of antithrombotics/antiplatelets; Z79.01 Long term (current) use of anticoagulants; Z79.899 Other long term (current) drug therapy
CPT/HCPCS: 88305; 88342; J2704; J7120

== ENCOUNTER → 2022-12-03 | Outpatient (CLI) | payer BC ==
[~2022-12-03] MED LIST changes: +OLME5TAB
== END ==
LOC: LAB 16:31 → LAB SHORT 16:31
DX: R35.0 Frequency of micturition (principal)
CPT/HCPCS: 87086

== ENCOUNTER → 2022-12-27 | Outpatient (CLI) | payer BC ==
[2022-12-29 11:31] LABS: Stool Occult Bld Immuno 1 Negative (NEGATIVE); Stool Occult Bld Immuno 2 Negative (NEGATIVE)
[2022-12-29 12:20] LABS: Adenovirus F 40/41 Not Detected (NOT DETECT); Astrovirus Not Detected (NOT DETECT); Campylobacter Sp Not Detected (NOT DETECT); Cryptosporidium Not Detected (NOT DETECT); Cyclospora Cayetanensis Not Detected (NOT DETECT); E. Coli O157 Not Detected (NOT DETECT); Entamoeba Histolytica Not Detected (NOT DETECT); Enteroaggregative E. coli-EAEC Not Detected (NOT DETECT); Enteropathogenic E. coli-EPEC Not Detected (NOT DETECT); Enterotoxigenic E. coli-ETEC Not Detected (NOT DETECT); Giardia Lamblia Not Detected (NOT DETECT); Norovirus GI/GII Not Detected (NOT DETECT); Plesiomonas Shigelloides Not Detected (NOT DETECT); Rotavirus A Not Detected (NOT DETECT); Salmonella Sp Not Detected (NOT DETECT); Sapovirus Not Detected (NOT DETECT); Shiga Toxin-prod E. coli-STEC Not Detected (NOT DETECT); Shigella/Enteroin E. coli-EIEC Not Detected (NOT DETECT); Vibrio Cholerae Not Detected (NOT DETECT); Vibrio Sp Not Detected (NOT DETECT); Yersinia Enterocolitica Not Detected (NOT DETECT)
== END | disposition home or self-care (01) ==
LOC: LAB 10:49 → LAB SHORT 10:49
PROVIDERS: Nurse Practitioner Family
DX: Z13.228 Encounter for screening for other metabolic disorders (principal); K52.9 Noninfective gastroenteritis and colitis, unspecified; K92.1 Melena; R10.9 Unspecified abdominal pain; R73.09 Other abnormal glucose
CPT/HCPCS: 82274; 87507

== ENCOUNTER 2023-12-29 07:06 | Day surgery (SDC) | payer BC ==
[~2023-12-29] VITALS: Ht 157.5 cm; Wt 62.8 kg
[2023-12-29] MEDS ORDERED: Lactated Ringer's 1,000 ML IV ONE (07:26)
[2023-12-29] MEDS ORDERED: PREG75 PO (07:37)
[2023-12-29] MEDS ORDERED: OMEP20ER PO (07:37)
[2023-12-29] MEDS ORDERED: UBRELVY100 MG PO (07:37)
[2023-12-29] MEDS ORDERED: AMLO10 PO (07:42)
[2023-12-29] MEDS ORDERED: VENL75ER PO (07:42)
--- NOTE | 2023-12-29 07:59 | NUR ---
12/29/23 0759 HARSHAL HAMMER IN TO SEE PT PRE OP - INJECTION W/ LIDO 1% W/EPI 1:100,000 (9ML), AND SODIUM BICARBONATE (1ML), TOTAL OF 12 ML TOTAL PT TOLERATED WELL. AWAITING TRANSPORT TO OR
[2023-12-29] MEDS ORDERED: Midazolam HCl 1MG / ML 2ML Vial ONE (08:14)
[2023-12-29] MEDS ORDERED: propofoL 20 ML IV ONE (08:16)
[2023-12-29 08:55] VITALS: BP 101/74
== END 2023-12-29 08:57 | disposition home or self-care (01) ==
LOC: ORSCSDS 07:06
PROVIDERS: Orthopaedic Surgery
PROC: 0LN70ZZ Release Right Hand Tendon, Open Approach (ICD-10-PCS; principal; 2023-12-29 08:30)
DX: M65.311 Trigger thumb, right thumb (principal); M65.321 Trigger finger, right index finger; M65.331 Trigger finger, right middle finger; M65.341 Trigger finger, right ring finger; I12.9 Hypertensive chronic kidney disease with stage 1 through stage 4 chronic kidney disease, or unspecified chronic kidney disease; N18.9 Chronic kidney disease, unspecified; Z86.73 Personal history of transient ischemic attack (TIA), and cerebral infarction without residual deficits; E78.00 Pure hypercholesterolemia, unspecified; K21.9 Gastro-esophageal reflux disease without esophagitis; Z87.891 Personal history of nicotine dependence; Z79.899 Other long term (current) drug therapy
CPT/HCPCS: J2250; J2704

== ENCOUNTER → 2024-02-27 | Outpatient (CLI) | payer BC ==
[~2024-02-27] MED LIST changes: +AMLO10 PO; +PREG75 PO; +UBRELVY100 MG PO; +VENL75ER PO
[2024-03-02 14:24] LABS: HPV HIGH RISK BY TMA Not Detected; HPV SOURCE Cervical
== END | disposition home or self-care (01) ==
LOC: LAB 12:00 → LAB SHORT 12:00
PROVIDERS: Nurse Practitioner Family
DX: Z01.419 Encounter for gynecological examination (general) (routine) without abnormal findings (principal)
CPT/HCPCS: 87624; G0123